=== PATIENT | male | born 1995 ===

== ENCOUNTER 2021-04-11 12:46 | Emergency (ER) | payer OTHER, BC ==
[2021-04-11] MEDS ORDERED: Sodium Chloride 0.9% 1,000 ML IV ONE (13:00)
[2021-04-11] MEDS ORDERED: Ondansetron 4 MG/2 ML SDV IVPUSH ONE (13:00)
[2021-04-11] MEDS ORDERED: fentaNYL 50 MCG/ML SDV IVPUSH ONE ×2 (13:00→16:35)
[2021-04-11] MEDS ORDERED: Sodium Chloride 0.9% 2.5 ML Syringe FLUSH PRN (13:00)
[2021-04-11] MEDS: Sodium Chloride 0.9% 10 ML Syringe FLUSH PRN ×2 (13:21→15:04)
[2021-04-11 13:28] LABS: BLOOD UREA NITROGEN,BUN 18 mg/dL (7.0-18.0); CHLORIDE,CL 103 mmol/L (98-107); GLUCOSE RANDOM 91 mg/dL (74-106); LIPASE 50 U/L (73-393); SODIUM,NA 136 mmol/L (136-148)
[2021-04-11] MEDS ORDERED: Iopamidol 755 MG/ML 500 ML Multipack Bottle IVPUSH ONE (14:06)
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
[2021-04-11] MEDS ORDERED: Diphtheria,Pertussis(Acell),Tetanus Vaccine 0.5 ML Syringe IM ONE (17:04)
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
== END 2021-04-11 17:37 | disposition home or self-care (01) ==
LOC: MW.ED 12:46
DX: S20.212A Contusion of left front wall of thorax, initial encounter (principal); S30.811A Abrasion of abdominal wall, initial encounter; Z23 Encounter for immunization; Z72.0 Tobacco use; V29.49XA Motorcycle driver injured in collision with other motor vehicles in traffic accident, initial encounter
CPT/HCPCS: 36415; 71260; 74177; 80053; 81003; 83690; 85025; 90471; 90715; 96374; 96375; 96376; 99284; J2405; J3010; J7030; Q9967; 99283